=== PATIENT | female | born 1975 | race Caucasian/White ===

== ENCOUNTER 2021-11-07 16:59 | Emergency (ER) | payer OTHER ==
[~2021-11-07] VITALS: Ht 167.6 cm; Wt 134.3 kg
[2021-11-07] MEDS ORDERED: METFORMIN HCL500 M3 PO (17:20)
[2021-11-07] MEDS ORDERED: PROZAC10 M1 PO (17:20)
[2021-11-07 18:25] LABS: INFLUENZA A ANTIGEN Negative (Negative); INFLUENZA B ANTIGEN Negative (Negative)
[2021-11-07 18:55] LABS: ABSOLUTE EOSINOPHILS 0.1 thou/uL (0.0-0.7); ABSOLUTE LYMPHOCYTES 0.7 thou/uL (0.8-5.3); ABSOLUTE MONOCYTES 0.5 thou/uL (0.0-1.2); ABSOLUTE NEUTROPHILS 3.2 thou/uL (1.6-8.1); EOSINOPHILS 1.2 %; HEMATOCRIT 42.3 % (37.0-47.0); HEMOGLOBIN 14.1 gm/dL (12.0-15.0); MCH 29.8 pg (26.0-34.0); MCHC 33.3 g/dL (28.0-37.0); MCV 89.4 fL (80.0-100.0); MONOCYTES 10.5 %; MPV 8.8 fl. (7.2-11.1); NUCLEATED RBCS 0 /100WBC; PLATELET COUNT* 201 thou/uL (150-400); POLYS 71.3 %; RBC 4.73 mil/uL (4.20-5.00); RDW-CV 12.8 % (10.5-14.5); WBC 4.5 thou/uL (4.0-11.0)
[2021-11-07 19:04] LABS: CALCIUM 8.6 mg/dL (8.5-10.1)
[2021-11-07 19:15] LABS: ALBUMIN 3.5 g/dL (3.4-5.0); TOTAL BILIRUBIN 0.5 mg/dL (<0.1-1.0); TOTAL PROTEIN 7.9 g/dL (6.4-8.2)
[2021-11-07] MEDS ORDERED: PROAIR HFA8.5 GM INH (21:30)
[2021-11-07] MEDS ORDERED: TESSALON PERLE100 MG PO (21:30)
[2021-11-07] MEDS ORDERED: MEDROLDOSEPACK PO (21:30)
[2021-11-07 21:42] VITALS: BP 129/83
--- NOTE | 2021-11-08 08:17 | EKG ---
[place] [address] ELECTROCARDIOGRAM REPORT Name: DEBBIE MARRUFOEDDIE Hampton Room: [facility]#: [id number] Admission: 11/07/21 Attend Phys: Discharge: 11/07/21 Date of : 77 Date of Service: 11/07/211848 Report #: [id number] THIS REPORT FOR: //name// [facility] ED Test Date: 2021-11-07 Test Time: 18:49:41 Pat Name: NORMA MARRUFO Department: Room: Gender: F [employer] Operator: : 1975 Requested By: Jesus Draper Order Number: [id number] MD: Elvis Black Measurements Intervals [place] Rate: 92 P: 31 HI: 146 QRS: 48 QRSD: 76 T: 25 QT: 365 QTc: 452 Interpretive Statements Sinus rhythm No previous ECG available for comparison Electronically Signed On 11-08-2021 8:17:24 [employer] 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
== END 2021-11-07 21:44 | disposition home or self-care (01) ==
LOC: M.ERS 16:59
PROVIDERS: Physician Assistant
DX: J20.9 Acute bronchitis, unspecified (principal); Z20.822 Contact with and (suspected) exposure to COVID-19; H92.01 Otalgia, right ear; E11.9 Type 2 diabetes mellitus without complications; F32.9 Major depressive disorder, single episode, unspecified; Z90.711 Acquired absence of uterus with remaining cervical stump; Z79.899 Other long term (current) drug therapy; Z88.5 Allergy status to narcotic agent; Z88.2 Allergy status to sulfonamides